=== PATIENT | male | born 1965 | race Two or more races ===

== ENCOUNTER 2017-11-27 07:52 | Day surgery (SDC) | payer BC ==
[2017-11-27] MEDS ORDERED: LIDOCAINE 1% INJ 50 ML MDV IJ ONE (14:20)
[2017-11-27] MEDS ORDERED: HYDROCODONE/APAP 5/325MG 1 EACH TABLET ONE (16:18)
== END 2017-11-27 16:33 | disposition home or self-care (01) ==
LOC: DS 07:52
PROVIDERS: ATTEND Specialist
DX: M23.203 Derangement of unspecified medial meniscus due to old tear or injury, right knee (principal); M23.200 Derangement of unspecified lateral meniscus due to old tear or injury, right knee; M66.861 Spontaneous rupture of other tendons, right lower leg; M23.41 Loose body in knee, right knee; M22.41 Chondromalacia patellae, right knee; M94.261 Chondromalacia, right knee
CPT/HCPCS: 27430; 29876; 29880; 36415; 86850; 86921 ×2; A4217; A6253 ×2; J0690; J2704; J3490